=== PATIENT | female | born 1960 ===

== ENCOUNTER 2018-06-29 14:11 | Emergency (ER) | payer OTHER ==
--- NOTE | 2018-06-29 16:09 | C.PDOC ---
History Of Present Illness 58 y/o female presents to the ER complaining of occasional right medial knee pain which has been present for the past 2 weeks. Patient states that the pain is worse when she lays down at night.Patient denies having leg swelling, fall, injuries, and trauma. Time Seen by Provider: 06/29/18 14:49 Chief Complaint (Nursing): Lower Extremity Problem/Injury History Per: Patient History/Exam Limitations: no limitations Onset/Duration Of Symptoms: Days Current Symptoms Are (Timing): Still Present Severity: Moderate Past Medical History Reviewed: Historical Data, Nursing Documentation, Vital Signs Vital Signs: Last Vital Signs Temp 98.3 F 06/29/18 14:28 Pulse 69 06/29/18 14:28 Resp 20 06/29/18 14:28 BP 183/113 H 06/29/18 14:28 Pulse Ox 97 06/29/18 14:28 - Medical History PMH: HTN Surgical History: No Surg Hx Family History: States: No Known Family Hx - Social History Hx Alcohol Use: No Hx Substance Use: No Review Of Systems Except As Marked, All Systems Reviewed And Found Negative. Musculoskeletal: Positive for: Other (right knee pain) Neurological: Negative for: Weakness, Numbness Physical Exam - Physical Exam Appears: Non-toxic, No Acute Distress Skin: Normal Color, Warm, Dry Head: Atraumatic, Normacephalic Eye(s): bilateral: Normal Inspection Nose: Normal Oral Mucosa: Moist Neck: Supple Chest: Symmetrical Extremity: Normal ROM, Tenderness (minor tenderness to medial aspect of right knee), Other (no joint effusion to right knee) Neurological/Psych: Oriented x3, Normal Speech ED Course And Treatment O2 Sat by Pulse Oximetry: 97 (RA) Pulse Ox Interpretation: Normal - Other Rad X-Ray- Right Knee X-Ray: Interpreted by Me, Viewed By Me Interpretation: arthritis to medial aspect of right knee Medical Decision Making Medical Decision Making: R knee medial more than lateral aspect arthritis Disposition Doctor Will See Patient In The: Office Counseled Patient/Family Regarding: Studies Performed, Diagnosis - Disposition Referrals: [facility] [Outside] [facility] [Outside] [facility] [Outside] [facility] [Outside] Ernesto Blake MD [Staff Provider] - Disposition: HOME/ ROUTINE Disposition Time: 16:08 Condition: GOOD Additional Instructions: ice packs 1/2 hour per hour as needed motrin/advil 400-600 mg every 6 hours as needed outpatient follow-up in our Family Practice Clinic and/or Orthopedics call for appt. Instructions: Osteoarthritis (DC), Arthritis and Exercise Forms: [facility] ([place]), Work Excuse - Clinical Impression Clinical Impression: Arthritis - Scribe Statement The provider has reviewed the documentation as recorded by the Pradeep Salguero Provider Attestation: All medical record entries made by the Pradeep were at my direction and personally dictated by me. I have reviewed the chart and agree that the record accurately reflects my personal performance of the history, physical exam, medical decision making, and the department course for this patient. I have also personally directed, reviewed, and agree with the discharge instructions and disposition.
--- NOTE | 2018-06-29 16:09 | RAD ---
Date of service: 06/29/2018 PROCEDURE: Right Knee Radiographs. HISTORY: chronic R medial knee pain (worse supine) COMPARISON: None. FINDINGS: BONES: Normal. No fracture. JOINTS: No appreciable degenerative change. JOINT EFFUSION: None. OTHER FINDINGS: None. IMPRESSION: No significant or acute findings to account for/ related to the clinical presentation.
[2018-06-29 16:22] VITALS: BP 182/107; PULSE 72; RESP 18; TEMP 98.6
[2018-06-29 17:01] VITALS: O2SAT 97
== END 2018-06-29 16:25 | disposition home or self-care (01) ==
LOC: C.ER 14:11
DX: M17.11 Unilateral primary osteoarthritis, right knee (principal)

== ENCOUNTER 2018-07-29 13:59 | Emergency (ER) | payer OTHER ==
[2018-07-29 14:04] VITALS: BMI 29.7
[2018-07-29 15:04] LABS: BASO % 0.7 % (0.0-2.0); EOS # 0.2 K/uL (0.0-0.7); EOS % 2.8 % (0.0-4.0); HEMOGLOBIN 12.3 g/dL (11.0-16.0); LYMPH % 34.3 % (20.0-40.0); MEAN CELL VOLUME 93.5 fL (81.0-99.0); MEAN CORPUSCULAR HEMOGLOBIN 31.3 pg (27.0-31.0); MEAN CORPUSCULAR HGB CONC 33.4 g/dL (33.0-37.0); MEAN PLATELET VOLUME 9.5 fL (7.2-11.7); MONO # 0.3 K/uL (0.0-0.8); MONO % 5.3 % (0.0-10.0); NEUT # 3.3 K/uL (1.8-7.0); NEUT % 56.9 % (50.0-75.0); RBC 3.92 Mil/uL (3.80-5.20); RED CELL DISTRIBUTION WIDTH 13.6 % (11.5-14.5); WHITE BLOOD COUNT 5.8 K/uL (4.8-10.8)
[2018-07-29 15:25] LABS: ALB/GLOB RATIO 1.4 (1.0-2.1); ALBUMIN 4.3 g/dL (3.5-5.0); ALT/SGPT 30 U/L (9-52); AST/SGOT 26 U/L (14-36); BLOOD UREA NITROGEN 14 mg/dL (7-17); CALCIUM 9.8 mg/dl (8.6-10.4); GFR NON-AFRICAN AMERICAN > 60
[2018-07-29 16:13] VITALS: BP 169/73; PULSE 78; RESP 18; TEMP 98; O2SAT 98
--- NOTE | 2018-07-29 16:29 | C.PDOC ---
History Of Present Illness 58 y/o female presents to ED sent [facility] for evaluation of high blood pressure. Patient has history of HTN and is complaint with medication, states while she was at clinic became nervous because they kept re-checking blood pressure. Patient states she had problems controlling blood pressure in the past and denies chest pain, sob, nausea, vomiting, headache or any other complaints at this time. Chief Complaint (Nursing): High Blood Pressure History Per: Patient History/Exam Limitations: no limitations Onset/Duration Of Symptoms: Days Current Symptoms Are (Timing): Still Present Past Medical History Reviewed: Historical Data, Nursing Documentation, Vital Signs Vital Signs: Last Vital Signs Temp 98 F 07/29/18 16:12 Pulse 78 07/29/18 16:12 Resp 18 07/29/18 16:12 BP 169/73 H 07/29/18 16:12 Pulse Ox 98 07/29/18 16:12 - Medical History PMH: HTN Surgical History: No Surg Hx Family History: States: No Known Family Hx - Social History Hx Alcohol Use: No Hx Substance Use: No Review Of Systems Constitutional: Negative for: Fever, Chills Cardiovascular: Negative for: Chest Pain Respiratory: Negative for: Cough, Shortness of Breath Gastrointestinal: Negative for: Nausea, Vomiting Skin: Negative for: Rash Physical Exam - Physical Exam Appears: Non-toxic, No Acute Distress Skin: Warm, Dry, No Rash Head: Atraumatic, Normacephalic Eye(s): bilateral: Normal Inspection Oral Mucosa: Moist Neck: Normal ROM, Supple Cardiovascular: Rhythm Regular Respiratory: Normal Breath Sounds, No Rales, No Rhonchi, No Wheezing Gastrointestinal/Abdominal: Soft, No Tenderness, No Guarding, No Rebound Extremity: Normal ROM, No Pedal Edema, Capillary Refill (<2 seconds), No Deformity Neurological/Psych: Oriented x3, Normal Speech, Normal Cognition ED Course And Treatment - Laboratory Results Result Diagrams: 07/29/18 14:53 07/29/18 14:53 O2 Sat by Pulse Oximetry: 98 (RA) Pulse Ox Interpretation: Normal Progress Note: On re-evaluation patient blood pressure systolic 170. Patient given additional Rx for HTN and instructed to follow up with Clinic 08/01/18. Disposition - Disposition Referrals: [facility] [Outside] [facility] [Outside] Disposition: HOME/ ROUTINE Disposition Time: 15:45 Condition: IMPROVED Additional Instructions: MACK MURGUIA, thank you for letting us take care of you today. The emergency medical care you received today was directed at your acute symptoms. If you were prescribed any medication, please fill it and take as directed. It may take several days for your symptoms to resolve. Return to the Emergency Department if your symptoms worsen, do not improve, or if you have any other problems. Please contact your doctor or call one of the physicians/clinics you have been referred to that are listed on the Patient Visit Information form that is included in your discharge packet. Bring any paperwork you were given at discharge with you along with any medications you are taking to your follow up visit. Our treatment cannot replace ongoing medical care by a primary care provider outside of the emergency department. Thank you for allowing the [facility] team to be part of your care today. Please start taking the blood pressure medication. Continue taking the other medication you already have. Follow up with the clinic this Wednesday (3 days) for a blood pressure check Prescriptions: Hydrochlorothiazide [Microzide] 12.5 mg PO DAILY #14 cap Instructions: High Blood Pressure in Adults Forms: [employer] ([place]) - Clinical Impression Clinical Impression: Hypertension - Scribe Statement The provider has reviewed the documentation as recorded by the Mkibe Roseanna Iniguez All medical record entries made by the Mkibazalea were at my direction and personally dictated by me. I have reviewed the chart and agree that the record accurately reflects my personal performance of the history, physical exam, medical decision making, and the department course for this patient. I have also personally directed, reviewed, and agree with the discharge instructions and disposition.
== END 2018-07-29 16:13 | disposition home or self-care (01) ==
LOC: C.ER 13:59
DX: I10 Essential (primary) hypertension (principal)